=== PATIENT | male | born 1950 | race Caucasian/White ===

== ENCOUNTER 2023-08-18 21:01 | Emergency (ER) | payer MEDICARE ==
[~2023-08-18] VITALS: Ht 175.3 cm; Wt 74.8 kg
[2023-08-18] MEDS ORDERED: LIDOCAINE HCL 2% 20 ML VIAL ONE (21:46)
[2023-08-18] MEDS: LIDOCAINE HCL 2% 20 ML VIAL TP ONE (21:50)
[2023-08-18] MEDS ORDERED: CEphaleXIN 500 MG CAPSULE ONE (21:54)
[2023-08-18] MEDS: CEphaleXIN 500 MG CAPSULE PO ONE (21:56)
[2023-08-18] MEDS ORDERED: CEPH500T PO (22:27)
[2023-08-19 03:38] VITALS: BP 121/61; TEMP 98; O2SAT 97
== END 2023-08-18 23:00 | disposition home or self-care (01) ==
LOC: ER 21:05
DX: S61.221A Laceration with foreign body of left index finger without damage to nail, initial encounter (principal); E78.5 Hyperlipidemia, unspecified; E03.9 Hypothyroidism, unspecified; Z79.899 Other long term (current) drug therapy; W25.XXXA Contact with sharp glass, initial encounter; Y93.89 Activity, other specified; Y92.89 Other specified places as the place of occurrence of the external cause; Y99.8 Other external cause status
CPT/HCPCS: 12042; 73140; 99284; J3490; A4606; A4663